=== PATIENT | male | born 1965 | race Caucasian/White ===

== ENCOUNTER → 2019-03-16 | Outpatient (CLI) | payer OTHER ==
--- NOTE | 2019-03-16 11:31 | XR ---
EXAMINATION TYPE: XR Hip Bilateral Complete DATE OF EXAM: 03/16/2019 COMPARISON: NONE HISTORY: Pain TECHNIQUE: 2 views submitted each hip submitted FINDINGS: Right hip: There is a spur coming off the superior neck of the right femur. Moderate concentric narro wing the joint space. No acute fracture or dislocation. No erosive changes. Small spur along the infe rior margin of the humeral head. Left knee: There is a spur coming off the superior neck of the right femur. Moderate to severe concen tric narrowing the joint space. No acute fracture or dislocation. No erosive changes. Small spur theo g the inferior margin of the humeral head. IMPRESSION: 1. Bilateral osteoarthritis correlate for femoral acetabular impingement.
== END | disposition home or self-care (01) ==
LOC: RADXRMAIN 11:01
PROVIDERS: ATTEND Family Medicine
DX: M16.0 Bilateral primary osteoarthritis of hip (principal)
CPT/HCPCS: 73521

== ENCOUNTER 2024-11-01 08:06 | Day surgery (SDC) | payer BC, OTHER ==
[2024-10-28 15:47] VITALS: BMI 39.1
[~2024-11-01 08:06] MED LIST: LIDOCAINE 1% (10MG/ML) FOR IV START INTRADERMA PRN; ONDANSETRON 4 MG/2 ML VIAL IVP PRN
[2024-11-01] MEDS: IV FLUID CONTINUATION 1,000 ML IV ONE (09:00)
[2024-11-01 09:11] VITALS: TEMP 97.4
[2024-11-01] MEDS: LACTATED RINGERS 1,000 ML IV SCH (09:16)
[2024-11-01] MEDS ORDERED: GLYCOPYRROLATE 0.2 MG/ML 2 ML VIAL ONE (09:36)
[2024-11-01] MEDS ORDERED: PROPOFOL 10 MG/ML 20 ML VIAL IV ONE (09:36)
--- NOTE | 2024-11-01 09:39 | P.GSHP ---
History of Present Illness H&P Date: 11/01/24 Chief Complaint: Colon cancer screening 59-year-old male here for colonoscopy. Last colonoscopy 10 years ago. No bowel complaints. No family history of colon cancer. Past Medical History Past Medical History: GERD/Reflux History of Any Multi-Drug Resistant Organisms: None Reported Additional Past Surgical History / Comment(s): colonoscopy Past Anesthesia/Blood Transfusion Reactions: No Reported Reaction Past Psychological History: No Psychological Hx Reported Smoking Status: Former smoker Past Alcohol Use History: Occasional Past Drug Use History: None Reported Medications and Allergies Home Medications Medication Instructions Recorded Confirmed Type No Known Home Medications 10/28/24 11/01/24 History Allergies Allergy/AdvReac Type Severity Reaction Status Date / Time No Known Allergies Allergy Verified 10/28/24 15:40 Surgical - Exam Vital Signs Temp Pulse Resp BP Pulse Ox 97.4 F L 50 L 16 128/74 98 11/01/24 09:09 11/01/24 09:09 11/01/24 09:09 11/01/24 09:09 11/01/24 09:09 Physical exam: General: Well-developed, well-nourished HEENT: Normocephalic, sclerae nonicteric Abdomen: Nontender, nondistended Extremities: No edema Neuro: Alert and oriented Assessment and Plan (1) Colon cancer screening Narrative/Plan: Will proceed with colonoscopy at this time. Current Visit: Yes Status: Acute Code(s): Z12.11 - ENCOUNTER FOR SCREENING FOR MALIGNANT NEOPLASM OF COLON SNOMED Code(s): 104709360
--- NOTE | 2024-11-01 09:54 | P.PCN ---
Date of Procedure: 11/01/24 Procedure(s) Performed: PREOPERATIVE DIAGNOSIS: Colon cancer screening POSTOPERATIVE DIAGNOSIS: Diverticulosis PROCEDURE: Colonoscopy ANESTHESIA: MAC SURGEON: Nnamdi Shah M.D. SPECIMENS: None ENDOSCOPIC PROCEDURE: The patient was placed on the endoscopy table in the left decubitus position. The Olympus colonoscope was inserted into the anus and passed under direct visualization to the base of the cecum. The appendiceal orifice was visualized. From that point the scope was slowly withdrawn inspe cting all surfaces carefully. There were no neoplastic inflammatory or polypoid lesions throughout the cecum, ascending, transverse, descending, sigmoid and rectum. There was mild left-sided diverticulosis noted. Digital rectal examination was normal. The patient was taken to the recovery room in stable condition per anesthesia guidelines. RECOMMENDATIONS: Resume diet. Repeat colonoscopy 10 years.
[2024-11-01 10:08] VITALS: BP 126/73; PULSE 51; RESP 18
== END 2024-11-01 10:47 ==
LOC: ORWHC2ENDO 08:06
PROVIDERS: ATTEND Surgery
DX: Z12.11 Encounter for screening for malignant neoplasm of colon (principal); K57.30 Diverticulosis of large intestine without perforation or abscess without bleeding; K21.9 Gastro-esophageal reflux disease without esophagitis; F10.90 Alcohol use, unspecified, uncomplicated; Z87.891 Personal history of nicotine dependence
CPT/HCPCS: 45378; J2704; J1596